=== PATIENT | female | born 1950 | race Caucasian/White ===

== ENCOUNTER → 2016-08-13 | Outpatient (CLI) | payer BC ==
[~2016-08-13] MED LIST: AMOX875T3 PO; FLNIN/ NAE; GING550C PO; LEVO25TA5 PO; MULT-506 PO; MULT-580 PO; PRED20TA PO; PRLSR20 PO; PSEU30TA20 PO
--- NOTE | 2016-08-13 10:48 | DIAGNOSTIC IMAGING REPORT ---
ABDOMINAL ULTRASOUND, RIGHT UPPER QUADRANT HISTORY: Pain. Nausea. RUQ PAIN, NAUSEA, ERUCTATION. COMPARISON: None. FINDINGS: Pancreas: The pancreas demonstrates a normal echotexture. Liver: Unremarkable. Gallbladder: No gallbladder wall thickening. No gallstones. CBD: 6 mm Right kidney: No hydronephrosis. IMPRESSION: No significant abnormality identified within the within the right upper quadrant. Electronically signed by: Luis Henry M.D. 08/13/2016 10:47 AM Dictated Date/Time: 08/13/2016 10:46 AM
== END | disposition home or self-care (01) ==
LOC: C.ULTR 10:17
PROVIDERS: ATTEND Nurse Practitioner Family
DX: R10.11 Right upper quadrant pain (principal); R11.0 Nausea; R14.2 Eructation

== ENCOUNTER 2016-09-06 08:50 | Day surgery (SDC) | payer BC ==
[2016-09-05 11:45] VITALS: BMI 34.0
[~2016-09-06] VITALS: Ht 154.9 cm; Wt 81.4 kg
[~2016-09-06 08:50] MED LIST changes: -AMOX875T3 PO; +LACTATED RINGER'S 1000ML 1,000 ML IV SCH; -MULT-506 PO; -MULT-580 PO; -PRED20TA PO
[2016-09-06 09:18] VITALS: BP 118/68; PULSE 61; TEMP 37.2; O2SAT 97; Ht 154.9 cm; Wt 81.4 kg
--- NOTE | 2016-09-06 09:51 | Endo History and Physical ---
History & Physical Date of Service: Sep 06, 2016. Chief Complaint: Referring Physician: History of Present Illness N/V weight loss Past Surgical History Hx Cardiac Surgery: No Hx Abdominal Surgery: Yes (APPY) Hx Post-Op Nausea and Vomiting: No Hx Cancer Surgery: No Hx Thoracic Surgery: No Hx Orthopedic: Yes (feet surgeries x 5) Hx Urinary Tract Surgery: No Social History Smoking Status: Never Smoker Hx Substance Use: No Hx Alcohol Use: Yes (1-2 WEEK) Allergies Coded Allergies: Amoxicillin (Verified Allergy, Unknown, SHORTNESS OF BREATH,FACIAL SWELLING, 09/06/16) Penicillins (Verified Allergy, Unknown, SHORTNESS OF BREATH, FACIAL SWELLING, 09/06/16) Current Medications Reported Home Medications Medications Dose Route/Sig Max Daily Dose Days Date Category Fluticasone Propionate 120 Sprays/6000 Mcg Inha 1 [place] NEIL QAM 09/05/16 Reported Mariah Root (Mariah (Zingiber Officinalis)) 550 Mg Cap 1 Tab PO DAILY 09/05/16 Reported Prilosec (Omeprazole) 20 Mg Capcr 20 Mg PO QAM 09/05/16 Reported Sudafed (Pseudoephedrine HCl) 30 Mg Tab 30 Mg PO PRN 06/06/12 Reported Levothyroxine Sodium 25 Mcg Tab 25 Mcg PO QAM 06/06/12 Reported Vital Signs Weight (Kilograms): 81.36 Height (Feet): 5 Height (Inches): 1 Date Time Temp Pulse Resp B/P (MAP) Pulse Ox O2 Delivery O2 Flow Rate FiO2 09/06/16 09:18 37.2 61 18 118/68 (85) 97 Room Air Physical Exam AAOx3 Nls1s2 Lungs CTA Abd soft NT/ND + BS - CCE Pt with swollen LN , these may be parotid glands. No sore throat/fever reported by pt overnight since yesterday's outpt EGD attempt. Assessment and Plan EGD possible dilation
[2016-09-06] MEDS ORDERED: EpHEDrine SULFATE 50MG/5ML SYR ONE ×2 (10:20→10:22)
[2016-09-06] MEDS ORDERED: LIDOCAINE HCL 2% 2 ML VIAL (20MG/ML) ONE (10:22)
[2016-09-06] MEDS ORDERED: PROPOFOL IV EMULSION 10 MG/ML 20 ML VIAL IV ONE (10:22)
[2016-09-06] MEDS ORDERED: MIDAZOLAM HCL 1 MG/ML 2ML VIAL ONE (10:23)
[2016-09-06] MEDS ORDERED: SUCCINYLCHOLINE CHLORIDE 20 MG/ML 10 ML VIAL IV ONE (10:23)
[2016-09-06] MEDS ORDERED: FENTANYL CITRATE INJ 50 MCG/1 ML 2 ML VIAL ONE (10:23)
--- NOTE | 2016-09-06 10:27 | Discharge Instructions ---
Endoscopy Patient Instructions Date / Procedure(s) Performed Sep 06, 2016. EGD Allergy Information Coded Allergies: Amoxicillin (Verified Allergy, Unknown, SHORTNESS OF BREATH,FACIAL SWELLING, 09/06/16) Penicillins (Verified Allergy, Unknown, SHORTNESS OF BREATH, FACIAL SWELLING, 09/06/16) Discharge Date / Findings Sep 06, 2016. ulcerated lesion at distal esophagus ulcerative esophagitis Medication Instructions Restart Stopped Medication(s): Reported Home Medications Medications Dose Route/Sig Max Daily Dose Days Date Category Fluticasone Propionate 120 Sprays/6000 Mcg Inha 1 [place] NEIL QAM 09/05/16 Reported Mariah Root (Mariah (Zingiber Officinalis)) 550 Mg Cap 1 Tab PO DAILY 09/05/16 Reported Prilosec (Omeprazole) 20 Mg Capcr 20 Mg PO QAM 09/05/16 Reported Sudafed (Pseudoephedrine HCl) 30 Mg Tab 30 Mg PO PRN 06/06/12 Reported Levothyroxine Sodium 25 Mcg Tab 25 Mcg PO QAM 06/06/12 Reported Increase Prilosec to 40mg twice daily Reported Home Medications Medications Dose Route/Sig Max Daily Dose Days Date Category Fluticasone Propionate 120 Sprays/6000 Mcg Inha 1 [place] NEIL QAM 09/05/16 Reported Mariah Root (Mariah (Zingiber Officinalis)) 550 Mg Cap 1 Tab PO DAILY 09/05/16 Reported Prilosec (Omeprazole) 20 Mg Capcr 20 Mg PO QAM 09/05/16 Reported Sudafed (Pseudoephedrine HCl) 30 Mg Tab 30 Mg PO PRN 06/06/12 Reported Levothyroxine Sodium 25 Mcg Tab 25 Mcg PO QAM 06/06/12 Reported Increase Prilosec to 40mg twice daily Provider Instructions Activity Restrictions - No exercising or heavy lifting for 24 hours. - Do not drink alcohol the day of the procedure. - Do not drive a car or operate machinery until the day after the procedure. - Do not make any important decisions or sign important papers in 24 hours after the procedure. Following Day: - Return to full activity which may include returning to work/school. Diet Start your diet with liquids and light foods (jello, soup, juice, toast). Then eat your usual diet if not nauseated. Treatment For Common After Affects For mild abdominal pain, bloating, or excessive gas: - Rest - Eat lightly - Lie on right side Follow-Up Information Follow-up with as scheduled Anesthesia Information What You Should Know You have had a procedure that required some medicine to reduce anxiety and discomfort. This treatment is called moderate sedation. After receiving the treatment, you may be sleepy, but you will be able to breathe on your own. The effects of the treatment may last for several hours. Follow these instructions along with Activity/Diet recommendations noted above: * Do NOT do anything where dizziness or clumsiness would be dangerous. * Rest quietly at home today, then you can be up and about tomorrow. * Have a responsible person stay with you the rest of today. * You may have had an I.V. today. If so, you may take the dressing off later today. Recommendations Call your doctor if: * Trouble breathing * Continuous vomiting for more than 24 hours * Temperature above 101 degrees * Severe abdominal pain or bloating * Pain not relieved by pain medicine ordered * There is increased drainage or redness from any incision * A large amount of rectal bleeding greater than 2-3 tablespoons. (If you had a polyp/s removed or have hemorrhoids, a small amount of blood - from the rectum is to be expected.) * You have any unanswered questions or concerns. IN THE EVENT OF A SERIOUS EMERGENCY, GO TO THE NEAREST EMERGENCY ROOM Your discharge instructions were prepared by provider Tong Rankin. Patient Instructions Signature Page Lala Urias Patient (or Guardian) Signature/Date: I have read and understand the instructions given to me by my caregivers. Caregiver/RN/Doctor Signature/Date: The above-named patient and/or guardian has received patient instructions on this date. + Original Patient Signature Page (only) stays with chart. Please make copy for patient.
--- NOTE | 2016-09-06 10:54 | GI REPORT ---
Procedure Date: 09/06/2016 9:52 AM Procedure: Upper GI endoscopy Indications: Suspected gastro-esophageal reflux disease, Nausea with vomiting Medicines: General Anesthesia Complications: No immediate complications. Estimated blood loss: Minimal. Estimated Blood Loss: Estimated blood loss was minimal. Estimated blood loss was minimal. Procedure: Pre-Anesthesia Assessment: - Prior to the procedure, a History and Physical was performed, and patient medications and allergies were reviewed. The patient's tolerance of previous anesthesia was also reviewed. The risks and benefits of the procedure and the sedation options and risks were discussed with the patient. All questions were answered, and informed consent was obtained. Prior Anticoagulants: The patient has taken no previous anticoagulant or antiplatelet agents. ASA Grade Assessment: III - A patient with severe systemic disease. After reviewing the risks and benefits, the patient was deemed in satisfactory condition to undergo the procedure. After obtaining informed consent, the endoscope was passed under direct vision. Throughout the procedure, the patient's blood pressure, pulse, and oxygen saturations were monitored continuously. The On-site loaner was introduced through the mouth, and advanced to the second part of duodenum. The upper GI endoscopy was accomplished without difficulty. The patient tolerated the procedure well. Findings: The upper third of the esophagus and middle third of the esophagus were normal. LA Grade D (one or more mucosal breaks involving at least 75% of esophageal circumference) esophagitis with no bleeding was found 32 to 35 cm from the incisors. One cratered esophageal ulcer with no bleeding and no stigmata of recent bleeding was found 35 cm from the incisors. The lesion was 30 mm in largest dimension. Biopsies were taken with a cold forceps for histology. Estimated blood loss was minimal. Verification of patient identification for the specimen was done by the physician and audio video technician using the patient's name and medical record number. The examined duodenum was normal. Multiple 4 mm pedunculated and sessile polyps with no bleeding and no stigmata of recent bleeding were found on the greater curvature of the stomach. Biopsies were taken with a cold forceps for histology. Verification of patient identification for the specimen was done by the physician and audio video technician using the patient's name and medical record number. The gastric antrum was normal. Biopsies were taken with a cold forceps for histology. The cardia and gastric fundus were normal on retroflexion. Retained gastric contents are not identified on this exam. Impression: - Normal upper third of esophagus and middle third of esophagus. - LA Grade D reflux esophagitis. - Non-bleeding esophageal ulcer. Biopsied. - Normal examined duodenum. - Multiple gastric polyps. Biopsied. - Normal antrum. Biopsied. Recommendation: - Discharge patient to home (ambulatory). - Soft diet. - Await pathology results. - Use Prilosec (omeprazole) 40 mg PO BID. - Return to GI clinic. MD Tong Felton MD 09/06/2016 10:54:08 AM This report has been signed electronically. Note Initiated On: 09/06/2016 9:52 AM I attest to the content of the Intraoperative Record and orders documented therein, exceptions below
[2016-09-06] MEDS ORDERED: FENTANYL CITRATE INJ 50 MCG/1 ML 2 ML VIAL IV PRN (11:00)
[2016-09-06] MEDS ORDERED: ATROPINE SULFATE 0.1 MG/ML 5ML SYR IV PRN (11:00)
[2016-09-06] MEDS ORDERED: ONDANSETRON INJ 2 MG/ML 2 ML VIAL IV PRN (11:00)
--- NOTE | 2016-09-06 11:03 | Anesthesiology Progress Note ---
Anesthesia Post Op Note Date & Time Sep 06, 2016 at 11:04 Vital Signs Pain Intensity: 0 Vital Signs Past 12 Hours Date Time Temp Pulse Resp B/P (MAP) Pulse Ox O2 Delivery O2 Flow Rate FiO2 09/06/16 10:55 73 18 155/96 95 Room Air 09/06/16 10:45 72 18 163/79 100 Room Air 09/06/16 10:35 36.2 73 22 162/93 99 Mask 8 09/06/16 09:18 37.2 61 18 118/68 (85) 97 Room Air Notes Mental Status: alert / awake / arousable, participated in evaluation Pt Amnestic to Procedure: Yes Nausea / Vomiting: adequately controlled Pain: adequately controlled Airway Patency, RR, SpO2: stable & adequate BP & HR: stable & adequate Hydration State: stable & adequate Anesthetic Complications: no major complications apparent
[2016-09-06 11:10] VITALS: BP 143/69; PULSE 71; TEMP 36.6; O2SAT 94
[2016-09-06 11:40] VITALS: BP 124/59; PULSE 62; TEMP 36.6; O2SAT 95
[2016-10-23] MEDS ORDERED: MULT-506 PO (08:51)
[2016-10-23] MEDS ORDERED: MULT-580 PO (08:51)
== END 2016-09-06 12:15 | disposition home or self-care (01) ==
LOC: C.ACU 08:50
PROVIDERS: ATTEND Internal Medicine Gastroenterology
DX: K22.10 Ulcer of esophagus without bleeding (principal); R11.2 Nausea with vomiting, unspecified; K20.9 Esophagitis, unspecified; K31.7 Polyp of stomach and duodenum; K29.50 Unspecified chronic gastritis without bleeding